=== PATIENT | male | born 1985 | race Caucasian/White ===

== ENCOUNTER → 2016-08-29 | Outpatient (CLI) | payer OTHER ==
[2016-08-29 10:25] LABS: PROLACTIN 11.12 ng/mL; TESTOSTERONE,TOTAL 244.7 ng/dl
[2016-08-29 12:31] LABS: METHOD OF COLLECTION MASTURBATION; SEMEN TIME OF COLLECTION 736
[2016-08-29 12:32] LABS: DAYS OF ABSTINENCE 3; SEMEN COLOR GRAY OR GRAY-WHITE (GRY/GRYWHTE); SEMEN VOLUME 2.4 ML (>1.5); TYPE OF SPECIMEN CONTAINER STERILE CUP
[2016-08-29 12:33] LABS: SPERM VIABILITY STAIN NOT INDICATED % (>58%)
== END | disposition home or self-care (01) ==
LOC: C.LAB 08:17
PROVIDERS: ATTEND Urology
DX: N46.9 Male infertility, unspecified (principal)

== ENCOUNTER → 2017-09-21 | Outpatient (CLI) | payer OTHER ==
[2017-09-21 18:43] LABS: HEP C IGG 13 YRS+OLDER_RFLX NEG (NEG)
== END | disposition home or self-care (01) ==
LOC: C.LAB1850 15:53
PROVIDERS: ATTEND Obstetrics & Gynecology Reproductive Endocrinology
DX: Z01.89 Encounter for other specified special examinations (principal); Z11.3 Encounter for screening for infections with a predominantly sexual mode of transmission; Z11.4 Encounter for screening for human immunodeficiency virus [HIV]; Z11.59 Encounter for screening for other viral diseases